=== PATIENT | female | born 1950 | race Caucasian/White ===

== ENCOUNTER 2021-09-03 13:24 | Day surgery (SDC) | payer MEDICARE, BC ==
[2021-09-03] MEDS: Sodium Chloride 0.9% 1,000 ML IV SCH (14:10)
[2021-09-03] MEDS ORDERED: Propofol 200 MG/20 ML SDV ONE (15:20)
== END 2021-09-03 16:25 | disposition home or self-care (01) ==
LOC: LB.SDS 13:24
PROVIDERS: ATTEND Surgery
DX: K29.50 Unspecified chronic gastritis without bleeding (principal); K29.80 Duodenitis without bleeding; I10 Essential (primary) hypertension; Z88.2 Allergy status to sulfonamides
CPT/HCPCS: 88305; 88341; J2704; J7030